=== PATIENT | male | born 1980 | race Caucasian/White ===

== ENCOUNTER 2022-07-16 13:33 | Emergency (ER) | payer SELFPAY ==
[~2022-07-16] VITALS: Ht 177.8 cm; Wt 91.0 kg
[2022-07-16 13:40] VITALS: BP 138/77
[2022-07-16] MEDS ORDERED: TETRACAINE 0.5% OPHTH DROPS 4ML LEFTEYE ONE (17:45)
[2022-07-16] MEDS ORDERED: FLUORESCEIN SODIUM 1MG/STRIP LEFTEYE ONE (18:00)
[2022-07-16] MEDS ORDERED: [UNRECOGNIZED DRUG - OTHER] LEFTEYE (19:10)
[2022-07-16] MEDS ORDERED: IBUP-1525 MT (19:11)
[2022-07-16] MEDS ORDERED: TETANUS, DIPHTHERIA, PERTUSSIS VAC/PF 0.5ML (>10YR OLD) IM ONE (19:15)
== END 2022-07-16 20:56 | disposition home or self-care (01) ==
LOC: ER 13:44
DX: S05.02XA Injury of conjunctiva and corneal abrasion without foreign body, left eye, initial encounter (principal); X58.XXXA Exposure to other specified factors, initial encounter; Y93.89 Activity, other specified; Y92.89 Other specified places as the place of occurrence of the external cause; Y99.8 Other external cause status
CPT/HCPCS: 90471; 90715; 99283; Z7610